=== PATIENT | female | born 1945 | race Caucasian/White ===

== ENCOUNTER 2017-02-22 22:02 | Inpatient (IN) | payer MEDICARE, MEDICAID ==
--- NOTE | 2017-02-22 22:32 | ER Document Report ---
ED General - General Stated Complaint: UNRESPONSIVE Time seen by provider: 22:32 Mode of Arrival: Medic Information source: Outside Facility Records TRAVEL OUTSIDE OF THE [place] IN LAST 30 DAYS: No - HPI Patient complains to provider of: unresponsive Onset: This evening Onset/Duration: Sudden Notes: Patient is a 71-year-old female who was sent from local longterm for period of unresponsiveness, patient is normally interactive and conversational with staff members, however today they noticed that she is basically staring off into space and nonverbal, nonreactive to there attempts to interact with her - Related Data Allergies/Adverse Reactions: codeine [Codeine] Allergy (Unknown, Verified 09/16/14 08:06) Unknown reaction meperidine HCl [From Demerol] Allergy (Unknown, Verified 09/16/14 08:06) Unknown reaction metronidazole [From Flagyl] Allergy (Unknown, Verified 09/16/14 08:06) Blisters Penicillins Allergy (Unknown, Verified 09/16/14 08:06) Blisters propofol [From Diprivan] Allergy (Unknown, Verified 09/16/14 08:06) Unknown reaction potassium [From Potassimin] Allergy (Verified 09/16/14 08:06) Blisters Past Medical History - General Information source: Patient - Social History Smoking Status: Unknown if Ever Smoked Family History: Reviewed & Not Pertinent - Past Medical History Cardiac Medical History: Reports: Hx Hypercholesterolemia, Hx Hypertension - portal, Hx Heart Murmur Pulmonary Medical History: Reports: Hx Asthma, Hx COPD, Hx Pneumonia Denies: Hx Tuberculosis Neurological Medical History: Reports: Hx Cerebrovascular Accident, Hx Migraine. Denies: Hx Seizures Endocrine Medical History: Reports: Hx Hypothyroidism GI Medical History: Reports: Hx Gastroesophageal Reflux Disease Musculoskeltal Medical History: Reports Hx Arthritis Psychiatric Medical History: Denies: Hx Depression Past Surgical History: Reports: Hx Cholecystectomy, Hx Hysterectomy, Hx Neurologic Surgery - back, Hx Orthopedic Surgery - back, knee, Hx Tonsillectomy - Immunizations Hx Diphtheria, Pertussis, Tetanus Vaccination: Yes Hx Pneumococcal Vaccination: 10/28/10 Review of Systems - Review of Systems -: Yes ROS unobtainable due to patient's medical condition Neurological/Psychological: See HPI Physical Exam - Vital signs Vitals: BP Pulse Ox 161/53 H 94 02/22/17 22:11 02/22/17 22:11 Interpretation: Hypertensive, Bradycardic - General General appearance: Unresponsive - HEENT Head: Normocephalic, Atraumatic Eyes: Normal Conjunctiva: Normal Eyelashes: Normal Pupils: PERRL Mucous membranes: Dry - Respiratory Respiratory status: No respiratory distress Chest status: Nontender Breath sounds: Decreased air movement, Nonproductive cough, Rales, Rhonchi Chest palpation: Normal - Cardiovascular Rhythm: Regular - Abdominal Inspection: Obese Distension: No distension Bowel sounds: Normal Tenderness: Nontender Organomegaly: No organomegaly - Back Back: Normal - Extremities General upper extremity: Normal inspection General lower extremity: Normal inspection - Neurological [place] Coma Scale Eye Opening: Spontaneous Mini Coma Scale Verbal: None Mini Coma Scale Motor: Withdraws to Pain Mini Coma Scale Total: 9 - Skin Skin Temperature: Warm Skin Moisture: Dry Skin Color: Pale Course - Re-evaluation Re-evalutation: 02/23/17 05:26 Patient arrived unresponsive but maintaining airway, with relatively stable vital signs, throughout the course of her stay in the emergency room she became much more awake, alert and quite belligerent, cursing at staff times, evaluation reveals patient have leukocytosis with possible pneumonia in the right lower lobe and a large pleural effusion on the left, patient had short periods of hypoxia at times when sleeping, therefore was discussed with the hospitalist who agrees to admit for further evaluation and treatment - Vital Signs Vital signs: Temp Pulse Resp BP Pulse Ox 17 126/84 H 96 02/23/17 04:00 02/23/17 03:06 02/23/17 04:00 - Laboratory Result Diagrams: 02/22/17 23:40 02/22/17 23:40 Laboratory results interpreted by me: 02/22/17 02/22/17 02/22/17 22:14 23:30 23:40 WBC 15.1 H RDW 15.4 H Lymphocytes % 11.2 L Absolute Neutrophils 11.3 H Absolute Monocytes 1.8 H Carbon Dioxide Glucose POC Glucose 145 H Total Bilirubin Direct Bilirubin AST Albumin Urine Urobilinogen 4.0 H Urine Ascorbic Acid 40 H 02/22/17 23:40 WBC RDW Lymphocytes % Absolute Neutrophils Absolute Monocytes Carbon Dioxide 34 H Glucose 151 H POC Glucose Total Bilirubin 2.7 H Direct Bilirubin 0.7 H AST 60 H Albumin 2.7 L Urine Urobilinogen Urine Ascorbic Acid - Diagnostic Test Radiology reviewed: Image reviewed, Reports reviewed - EKG Interpretation by Me EKG shows normal: Sinus rhythm Rate: Bradycardia When compared to previous EKG there are: No significant change Critical Care Note - Critical Care Note Total time excluding time spent on procedures (mins): 30 Comments: Patient arrived unresponsive, had intermittent periods of hypoxia, and a large pleural effusion on the left, requiring admission to hospitalist service for further evaluation and treatment Discharge - Discharge Clinical Impression: Pleural effusion, Acute encephalopathy Pneumonia Qualifiers: Pneumonia type: due to unspecified organism Laterality: right Lung location: lower lobe of lung Qualified Code(s): J18.1 - Lobar pneumonia, unspecified organism Disposition: ADMITTED INPATIENT Admitting Provider: Hospitalist Unit Admitted: Telemetry
[2017-02-22 23:55] LABS: APPEARANCE,URINE SLIGHTLY-CLOUDY; BILIRUBIN,URINE NEGATIVE (NEGATIVE); GLUCOSE, URINE NEGATIVE (NEGATIVE); KETONES,URINE NEGATIVE (NEGATIVE); LEUKOCYTE ESTERASE,URINE NEGATIVE (NEGATIVE); NITRITE,URINE NEGATIVE (NEGATIVE); PROTEIN,URINE NEGATIVE (NEGATIVE); URINE SPECIFIC GRAVITY 1.025
[2017-02-22 23:57] LABS: ABSOLUTE BASOPHILS # (AUTO) 0.1 10^3/uL (0.0-0.2); ABSOLUTE EOSINOPHILS # (AUTO) 0.3 10^3/uL (0.0-0.6); ABSOLUTE LYMPHOCYTES (AUTO) 1.7 10^3/uL (0.5-4.7); ABSOLUTE MONOCYTES (AUTO) 1.8 10^3/uL (0.1-1.4); ABSOLUTE NEUT (AUTO) 11.3 10^3/uL (1.7-8.2); BASOPHILS % (AUTO) 0.6 % (0-2); EOSINOPHILS % (AUTO) 1.8 % (0-6); HEMATOCRIT 40.8 % (36.0-47.0); HEMOGLOBIN 13.9 g/dL (12.0-15.5); HGB HCT DIFFERENCE 0.9; LYMPHOCYTES % (AUTO) 11.2 % (13-45); MEAN CORPUSCULAR HEMOGLOBIN 33.2 pg (27.0-33.4); MEAN CORPUSCULAR VOLUME 97 fl (80-97); MONOCYTES % (AUTO) 11.8 % (3-13); RED BLOOD COUNT 4.19 10^6/uL (3.72-5.28); RED CELL DISTRIBUTION WIDTH 15.4 % (11.5-14.0); SEGMENTED NEUTROPHILS % (AUTO) 74.6 % (42-78); WHITE BLOOD COUNT 15.1 10^3/uL (4.0-10.5)
[2017-02-23 00:14] LABS: ALANINE AMINOTRANSFERASE 18 U/L (9-52); ALBUMIN 2.7 g/dL (3.5-5.0); ALKALINE PHOSPHATASE 121 U/L (38-126); ANION GAP 8 (5-19); ASPARTATE AMINO TRANSFERASE 60 U/L (14-36); BILIRUBIN,DIRECT 0.7 mg/dL (0.0-0.4); BILIRUBIN,TOTAL 2.7 mg/dL (0.2-1.3); BLOOD UREA NITROGEN 20 mg/dL (7-20); CALCIUM 8.8 mg/dL (8.4-10.2); CARBON DIOXIDE 34 mmol/L (22-30); CHLORIDE 100 mmol/L (98-107); CREATININE RESULT 0.81 mg/dL (0.52-1.25); GLUCOSE 151 mg/dL (75-110); POTASSIUM 4.2 mmol/L (3.6-5.0); SODIUM 142.2 mmol/L (137-145); TOTAL PROTEIN 7.1 g/dL (6.3-8.2)
[2017-02-23] MEDS ORDERED: LEVOFLOXACIN 750 MG/D5W RTU 150 ML IV ONE (01:54)
[2017-02-23] MEDS ORDERED: OXYCODONE HCL IR 5 MG TABLET PO PRN (02:22)
[2017-02-23] MEDS ORDERED: IPRATROPIUM/ALBUTEROL 0.5-2.5 MG/3 ML AMPUL NEB PRN (02:22)
[2017-02-23] MEDS ORDERED: HYDROCORTISONE 1% CREAM 28.35 GM TP PRN (02:22)
[2017-02-23] MEDS ORDERED: GUAIFENESIN SYRP 200 MG/10 ML UDC PO PRN (02:22)
[2017-02-23] MEDS ORDERED: NORMAL SALINE 1000 ML 1,000 ML IV ONE (02:27)
[2017-02-23] MEDS ORDERED: AZTREONAM 1 GM in DEXTROSE 5%-WATER 50 ML IV ONE (03:00)
[2017-02-23] MEDS ORDERED: AZTREONAM INJ 1 GM VIAL IV SCH (03:00)
[2017-02-23] MEDS ORDERED: TRAZODONE HCL 50 MG TABLET PO ONE (03:00)
[2017-02-23] MEDS ORDERED: DEXTROSE 40% GEL 15 GM TUBE PO PRN ×2 (03:45)
[2017-02-23] MEDS ORDERED: DEXTROSE 50%-WATER 25 GM/50 ML DISP.SYRIN IV PRN ×2 (03:45)
[2017-02-23] MEDS ORDERED: GLUCAGON,HUMAN RECOMB 1 MG INJ IM PRN (03:45)
--- NOTE | 2017-02-23 04:10 | PDOC H&P ---
History of Present Illness Admission Date/PCP: 02/23/17 02:23 Patient complains of: Altered mental status History of Present Illness: ARETHA COLLADO is a 71 year old female with an extensive past medical history of alcohol related hepatic cirrhosis, portal hypertension, hypothyroidism, depression and anxiety, gastritis, chronic pain, chronic constipation, history of CVA who is a bedbound long-term residential resident. She's found by residential staff to be unresponsive to voice brought into the emergency room where she is awake and alert and delirious refusing treatment. Without focal complaints her workup reveals +2 edema, a large left-sided pleural effusion with atelectasis versus pneumonia, leukocytosis, and hyponatremia. She started on empiric resistance to this treatment results in her right forearm IV infiltrates resulting in Levaquin to the subcutaneous tissue. Patient is referred to the hospitalist for admission. She is lying flat in no acute distress but delirious, abusive toward staff and refusing treatment her baseline is unclear and is oriented 1. I am searching for power of attorney at law for patient's wishes. Past Medical History Cardiac Medical History: Reports: Hyperlipidema, Hypertension - portal, Heart Murmur Pulmonary Medical History: Reports: Asthma, Chronic Obstructive Pulmonary Disease (COPD), Pneumonia Denies: Tuberculosis Neurological Medical History: Reports: Migraine Denies: Seizures Endocrine Medical History: Reports: Hypothyroidism GI Medical History: Reports: Gastroesophageal Reflux Disease Musculoskeltal Medical History: Reports: Arthritis Psychiatric Medical History: Denies: Depression Past Surgical History Past Surgical History: Reports: Cholecystectomy, Hysterectomy, Orthopedic Surgery - back, knee, Tonsillectomy Social History Information Source: ON LICENSE OF [facility] Records Lives with: Longterm Smoking Status: Unknown if Ever Smoked Frequency of Alcohol Use: None Hx Recreational Drug Use: No Drugs: None Hx Prescription Drug Abuse: No - Advance Directive Resuscitation Status: Do Not Resuscitate Family History Family History: None, Other - Unobtainable Parental Family History Reviewed: Yes Children Family History Reviewed: Yes Sibling(s) Family History Reviewed.: Yes - Unobtainable unobtainable Medication/Allergy Home Medications: Aspirin 325 mg PO DAILY 12/24/15 Gabapentin [Neurontin 300 mg Capsule] 300 mg PO TID 12/24/15 Hydrocortisone [Preparation H] 1 applic TP PRN PRN 12/24/15 Lactulose [Enulose 10 gm/15 mL Oral Solution] 15 ml PO QHS 12/24/15 Metaxalone [Skelaxin 800 mg Tablet] 800 mg PO PRN PRN 12/24/15 Omeprazole [Prilosec] 20 mg PO DAILY 12/24/15 Ondansetron HCl [Zofran 8 mg Tablet] 8 mg PO Q8HP PRN 12/24/15 Polyethylene Glycol 3350 [Miralax Powder 17 gm/Packet] 1 packet PO DAILY Pramipexole Di-HCl [Mirapex] 1.5 mg PO BID 12/24/15 Guaifenesin [Robitussin Syrup 200 mg/10 ml Ud Cup] 200 mg PO Q4HP PRN #1 udc Ipratropium/Albuterol Sulfate [Duoneb 3 ml Ampul] 3 ml NEB RTQ4HP PRN #0 vial.neb 12/26/15 Trazodone HCl [Desyrel 50 mg Tablet] 50 mg PO QHS 01/28/16 Alprazolam [Xanax 0.5 mg Tablet] 0.5 mg PO Q8HP PRN #10 tablet 02/03/16 Docusate Sodium [Colace 100 mg Capsule] 100 mg PO DAILY capsule 02/03/16 Enoxaparin Sodium [Lovenox Inj 40 mg/0.4 ml Disp.syrin] 40 mg SUBCUT QAM disp.syrin 02/03/16 Oxycodone HCl 10 mg PO Q4HP PRN #30 tablet 02/03/16 Oxycodone HCl [Oxycontin Sr 10 mg Tablet] 20 mg PO Q12 #20 tab.sr.12h 02/03/16 Propranolol HCl [Inderal 10 mg Tablet] 10 mg PO Q8 tablet 02/03/16 Sennosides/Docusate 8.6-50 mg [Senna Plus Tablet] 1 each PO DAILY tablet Sulfamethoxazole/Trimethoprim [Bactrim Ds Tablet] 1 each PO BID #20 tablet 02/17 Allergies/Adverse Reactions: codeine [Codeine] Allergy (Unknown, Verified 09/16/14 08:06) Unknown reaction meperidine HCl [From Demerol] Allergy (Unknown, Verified 09/16/14 08:06) Unknown reaction metronidazole [From Flagyl] Allergy (Unknown, Verified 09/16/14 08:06) Blisters Penicillins Allergy (Unknown, Verified 09/16/14 08:06) Blisters propofol [From Diprivan] Allergy (Unknown, Verified 09/16/14 08:06) Unknown reaction potassium [From Potassimin] Allergy (Verified 09/16/14 08:06) Blisters Review of Systems ROS unobtainable: Due to mental status Physical Exam Vital Signs: Temp Pulse Resp BP Pulse Ox 19 126/84 H 96 02/23/17 03:06 02/23/17 03:06 02/23/17 03:06 General appearance: PRESENT: no acute distress, disheveled, morbidly obese. ABSENT: cooperative Head exam: PRESENT: atraumatic, normocephalic Eye exam: PRESENT: conjunctiva pink, EOMI, PERRLA. ABSENT: scleral icterus Ear exam: PRESENT: normal external ear exam Mouth exam: PRESENT: moist, tongue midline Neck exam: ABSENT: carotid bruit, JVD, lymphadenopathy, thyromegaly Respiratory exam: PRESENT: crackles - Right side, decreased breath sounds - Left side. ABSENT: rales, rhonchi, symmetrical, wheezes Cardiovascular exam: PRESENT: RRR. ABSENT: diastolic murmur, rubs, systolic murmur Pulses: PRESENT: normal dorsalis pedis pul Vascular exam: PRESENT: normal capillary refill GI/Abdominal exam: PRESENT: ascites, hypoactive bowel sounds, soft. ABSENT: rebound, tenderness Rectal exam: PRESENT: deferred Extremities exam: PRESENT: pedal edema, +2 edema. ABSENT: joint swelling, tenderness Neurological exam: PRESENT: alert, altered, awake, oriented to person, CN II- XII grossly intact. ABSENT: oriented to place, oriented to time Psychiatric exam: PRESENT: agitated - With stimulus Skin exam: PRESENT: dry, intact, warm. ABSENT: cyanosis, rash Results Impressions: Chest X-Ray 02/22/17 22:11 IMPRESSION: INTERVAL DEVELOPMENT OF LARGE LEFT PLEURAL EFFUSION. OTHERWISE STABLE APPEARANCE OF THE CHEST. Chest CT 02/23/17 00:33 IMPRESSION: 1. LARGE LEFT PLEURAL EFFUSION WITH COMPRESSIVE ATELECTASIS OF THE LEFT LUNG. MINIMAL SUBPULMONIC RIGHT PLEURAL EFFUSION. PATCHY DENSITY IN THE RIGHT LUNG BASE MAY BE DUE TO ATELECTASIS VERSUS DEVELOPING PNEUMONIA. 2. HETEROGENOUS APPEARANCE OF THE THYROID WITH LOWER LEFT LOBE NODULE WITH NUMEROUS CALCIFICATIONS. RECOMMEND FOLLOW-UP WITH ULTRASOUND OF THE THYROID. 3. SOMEWHAT NODULAR APPEARANCE OF THE LIVER WELL SPLENOMEGALY. PROBABLE CIRRHOSIS OR OTHER CHRONIC LIVER DISEASE. Assessment & Plan - Diagnosis (1) Malnutrition Is this a current diagnosis for this admission?: YesPlan: Acute problem Likely secondary to hepatic insufficiency I'll obtain an albumin level and prealbumin level for evaluation (2) Hepatic cirrhosis Is this a current diagnosis for this admission?: YesPlan: Chronic an unclear control obtaining ammonia level, and INR. I am unclear if auto anticoagulation is present and if so increasing risk of thoracentesis. Follow-up labs consider vitamin K or FFP (3) Acute encephalopathy Is this a current diagnosis for this admission?: YesPlan: Likely multifactorial secondary to underlying dementia in addition to acute illness. Continue supportive care obtaining ammonia level consideration of lactulose if elevated and empiric anabiotic for treatment for underlying pneumonia. And follow-up labs (4) Pleural effusion Is this a current diagnosis for this admission?: YesPlan: New an acute problem of unclear cause. Pneumonia versus malignancy versus transudate from hepatic insufficiency. Will evaluate for coagulopathy. And discussed with daughter power of attorney at law for patient's wishes prior to consideration of thoracentesis. Otherwise supportive care supplemental oxygen consideration of BiPAP. (5) Pneumonia Qualifiers: Pneumonia type: due to unspecified organism Laterality: right Lung location: lower lobe of lung Qualified Code(s): J18.1 - Lobar pneumonia, unspecified organism Plan: New acute Compressive Atelectasis versus pneumonia she receive empiric antibiotics blood cultures and follow-up labs. Patient is currently delirious refusing intervention including incentive spirometry severely complicating prognosis. - Time Time Spent: 50 to 70 Minutes - Inpatient Certification Medical Necessity: Need Close Monitoring Due to Risk of Patient Decompensation
[2017-02-23] MEDS: PROPRANOLOL HCL 10 MG TABLET PO SCH ×3 (06:03→21:31)
[2017-02-23 07:21] LABS: PROTHROMBIN TIME 18.9 SEC (11.4-15.4)
[2017-02-23 07:22] LABS: PARTIAL THROMBOPLASTIN TIME 38.5 SEC (23.5-35.8)
[2017-02-23] MEDS: IPRATROPIUM/ALBUTEROL 0.5-2.5 MG/3 ML AMPUL NEB SCH ×3 (07:41→23:39)
--- NOTE | 2017-02-23 09:48 | EKG REPORT ---
SEVERITY:- ABNORMAL ECG - SINUS BRADYCARDIA : Confirmed by: Natanael Lake 23-Feb-2017 09:48:06
[2017-02-23] MEDS ORDERED: (PENDING PHARMACY ID) (Omeprazole [Prilosec] 20 MG) PO SCH (10:00)
[2017-02-23] MEDS ORDERED: AZTREONAM 1 GM in DEXTROSE 5%-WATER 50 ML IV SCH (10:00)
--- NOTE | 2017-02-23 10:18 | PDOC PROGRESS REPORT ---
Subjective Progress Note for:: 02/23/17 Subjective:: Patient began crying when I talk to her saying that she wanted to go home. She denied any pain or shortness of breath. Physical Exam Vital Signs: Temp Pulse Resp BP Pulse Ox 97.6 F 61 19 125/54 L 98 02/23/17 09:24 02/23/17 09:24 02/23/17 09:24 02/23/17 09:24 02/23/17 09:24 Intake & Output 02/22/17 02/23/17 02/24/17 06:59 06:59 06:59 Intake Total 207 Balance 207 Weight 85 kg General appearance: PRESENT: no acute distress Eye exam: PRESENT: conjunctiva pink. ABSENT: scleral icterus Mouth exam: PRESENT: moist, tongue midline Neck exam: ABSENT: JVD Respiratory exam: PRESENT: rhonchi - Coarse rhonchi bilaterally.. ABSENT: rales , wheezes Cardiovascular exam: PRESENT: RRR. ABSENT: diastolic murmur, rubs, systolic murmur GI/Abdominal exam: PRESENT: normal bowel sounds, soft. ABSENT: distended, guarding, mass, organolmegaly, rebound, tenderness Extremities exam: ABSENT: calf tenderness, clubbing, pedal edema Neurological exam: PRESENT: awake, oriented to person, oriented to place. ABSENT: oriented to time, oriented to situation Psychiatric exam: PRESENT: anxious Skin exam: PRESENT: dry, intact, warm. ABSENT: cyanosis, rash Results Laboratory Results: 02/23/17 02/23/17 02/23/17 06:59 06:59 06:59 Ammonia 16.1 Prealbumin < 3.0 L TSH 1.98 Impressions: Chest X-Ray 02/22/17 22:11 IMPRESSION: INTERVAL DEVELOPMENT OF LARGE LEFT PLEURAL EFFUSION. OTHERWISE STABLE APPEARANCE OF THE CHEST. Chest CT 02/23/17 00:33 IMPRESSION: 1. LARGE LEFT PLEURAL EFFUSION WITH COMPRESSIVE ATELECTASIS OF THE LEFT LUNG. MINIMAL SUBPULMONIC RIGHT PLEURAL EFFUSION. PATCHY DENSITY IN THE RIGHT LUNG BASE MAY BE DUE TO ATELECTASIS VERSUS DEVELOPING PNEUMONIA. 2. HETEROGENOUS APPEARANCE OF THE THYROID WITH LOWER LEFT LOBE NODULE WITH NUMEROUS CALCIFICATIONS. RECOMMEND FOLLOW-UP WITH ULTRASOUND OF THE THYROID. 3. SOMEWHAT NODULAR APPEARANCE OF THE LIVER WELL SPLENOMEGALY. PROBABLE CIRRHOSIS OR OTHER CHRONIC LIVER DISEASE. Assessment & Plan - Diagnosis (1) Acute encephalopathy Is this a current diagnosis for this admission?: YesPlan: This is secondary to her infection and underlying liver disease. We'll continue with antibiotics and lactulose. (2) Pneumonia Qualifiers: Pneumonia type: due to unspecified organism Laterality: right Lung location: lower lobe of lung Qualified Code(s): J18.1 - Lobar pneumonia, unspecified organism Is this a current diagnosis for this admission?: YesPlan: Continue with aztreonam and Levaquin. She has large pleural effusion on the left. If she does not improve we may need to do a thoracentesis. (3) Hepatic cirrhosis Is this a current diagnosis for this admission?: YesPlan: We'll continue with the lactulose. - Time Time Spent with patient: 25-34 minutes - Inpatient Certification Medical Necessity: Need for IV Antibiotics
[2017-02-23] MEDS: ASPIRIN 325 MG TABLET PO SCH (10:25)
[2017-02-23] MEDS: SENNOSIDES/DOCUSATE 8.6-50 MG 1 EACH TABLET PO SCH (10:26)
[2017-02-23] MEDS: GABAPENTIN 300 MG CAPSULE PO SCH ×3 (10:26→17:47)
[2017-02-23] MEDS: POLYETHYLENE GLYCOL 3350 POWDER 17 GM/1 PACKET PO SCH (10:27)
[2017-02-23] MEDS: DOCUSATE SODIUM 100 MG CAPSULE PO SCH (10:27)
[2017-02-23] MEDS: LANSOPRAZOLE 15 MG TAB.RAP.DR PO SCH (10:27)
[2017-02-23] MEDS: OXYCODONE HCL SR 10 MG TABLET PO SCH ×2 (10:27→21:31)
[2017-02-23] MEDS: ENOXAPARIN SODIUM INJ 40 MG/0.4 ML DISP.SYRIN SUBCUT SCH (10:28)
[2017-02-23] MEDS: AZTREONAM 1 GM in DEXTROSE 5%-WATER 50 ML IV SCH ×2 (13:17→21:31)
[2017-02-23] MEDS: INSULIN LISPRO 100 UNIT/ML 3 ML VIAL SUBCUT PRN ×2 (13:18→22:20)
[2017-02-23] MEDS: LACTULOSE SYRUP 20 GM/30 ML UDCUP PO SCH (21:31)
[2017-02-23] MEDS: LEVOFLOXACIN 750 MG/D5W RTU 750 MG/150 ML RTUPB IV SCH (21:31)
[2017-02-23] MEDS: TRAZODONE HCL 50 MG TABLET PO SCH (21:31)
[2017-02-24 04:47] LABS: ABSOLUTE BASOPHILS # (AUTO) 0.1 10^3/uL (0.0-0.2); ABSOLUTE EOSINOPHILS # (AUTO) 0.3 10^3/uL (0.0-0.6); ABSOLUTE LYMPHOCYTES (AUTO) 1.5 10^3/uL (0.5-4.7); ABSOLUTE MONOCYTES (AUTO) 1.6 10^3/uL (0.1-1.4); ABSOLUTE NEUT (AUTO) 9.8 10^3/uL (1.7-8.2); BASOPHILS % (AUTO) 0.5 % (0-2); HEMATOCRIT 38.1 % (36.0-47.0); HEMOGLOBIN 12.7 g/dL (12.0-15.5); LYMPHOCYTES % (AUTO) 11.1 % (13-45); MEAN CORPUSCULAR HGB CONC 33.4 g/dL (32.0-36.0); MEAN CORPUSCULAR VOLUME 99 fl (80-97); MONOCYTES % (AUTO) 12.3 % (3-13); RED BLOOD COUNT 3.86 10^6/uL (3.72-5.28); RED CELL DISTRIBUTION WIDTH 15.3 % (11.5-14.0); SEGMENTED NEUTROPHILS % (AUTO) 74.1 % (42-78); WHITE BLOOD COUNT 13.2 10^3/uL (4.0-10.5)
[2017-02-24 05:08] LABS: ANION GAP 8 (5-19); BLOOD UREA NITROGEN 24 mg/dL (7-20); CALCIUM 8.5 mg/dL (8.4-10.2); CARBON DIOXIDE 34 mmol/L (22-30); CHLORIDE 101 mmol/L (98-107); GLUCOSE 127 mg/dL (75-110); POTASSIUM 4.5 mmol/L (3.6-5.0); SODIUM 142.7 mmol/L (137-145)
[2017-02-24] MEDS: AZTREONAM 1 GM in DEXTROSE 5%-WATER 50 ML IV SCH ×3 (05:28→21:22)
[2017-02-24] MEDS: PROPRANOLOL HCL 10 MG TABLET PO SCH ×3 (05:28→21:22)
[2017-02-24] MEDS: IPRATROPIUM/ALBUTEROL 0.5-2.5 MG/3 ML AMPUL NEB SCH ×3 (07:50→23:41)
[2017-02-24] MEDS: ENOXAPARIN SODIUM INJ 40 MG/0.4 ML DISP.SYRIN SUBCUT SCH (11:20)
[2017-02-24] MEDS: GABAPENTIN 300 MG CAPSULE PO SCH ×3 (11:21→17:11)
[2017-02-24] MEDS: LANSOPRAZOLE 15 MG TAB.RAP.DR PO SCH (11:21)
[2017-02-24] MEDS: ASPIRIN 325 MG TABLET PO SCH (11:21)
[2017-02-24] MEDS: DOCUSATE SODIUM 100 MG CAPSULE PO SCH (11:21)
[2017-02-24] MEDS: SENNOSIDES/DOCUSATE 8.6-50 MG 1 EACH TABLET PO SCH (11:21)
[2017-02-24] MEDS: POLYETHYLENE GLYCOL 3350 POWDER 17 GM/1 PACKET PO SCH (11:22)
[2017-02-24] MEDS: OXYCODONE HCL SR 10 MG TABLET PO SCH ×2 (11:22→21:22)
[2017-02-24] MEDS: INSULIN LISPRO 100 UNIT/ML 3 ML VIAL SUBCUT PRN ×3 (12:09→22:41)
--- NOTE | 2017-02-24 12:21 | PDOC PROGRESS REPORT ---
Subjective Progress Note for:: 02/24/17 Subjective:: Patient is confused. She denied any pain or shortness of breath. Physical Exam Vital Signs: Temp Pulse Resp BP Pulse Ox 98.3 F 76 18 149/58 H 95 02/24/17 09:43 02/24/17 09:43 02/24/17 09:43 02/24/17 09:43 02/24/17 09:43 Intake & Output 02/23/17 02/24/17 02/25/17 06:59 06:59 06:59 Intake Total 207 1497 Balance 207 1497 Weight 85 kg 86.6 kg General appearance: PRESENT: no acute distress Eye exam: PRESENT: conjunctiva pink. ABSENT: scleral icterus Mouth exam: PRESENT: moist, tongue midline Neck exam: ABSENT: JVD Respiratory exam: PRESENT: decreased breath sounds - Decrease in the left base. ABSENT: rales, rhonchi, wheezes Cardiovascular exam: PRESENT: RRR. ABSENT: diastolic murmur, rubs, systolic murmur GI/Abdominal exam: PRESENT: normal bowel sounds, soft. ABSENT: distended, guarding, mass, organolmegaly, rebound, tenderness Extremities exam: ABSENT: calf tenderness, clubbing, pedal edema Neurological exam: PRESENT: altered, oriented to person, CN II-XII grossly intact. ABSENT: oriented to place, oriented to time, oriented to situation, motor sensory deficit Psychiatric exam: PRESENT: agitated, anxious Skin exam: PRESENT: dry, intact, warm. ABSENT: cyanosis, rash Results Laboratory Results: 02/24/17 03:49 02/24/17 03:49 02/24/17 02/24/17 03:49 03:49 WBC 13.2 H RBC 3.86 Hgb 12.7 Hct 38.1 MCV 99 H MCH 33.0 MCHC 33.4 RDW 15.3 H Plt Count 255 Seg Neutrophils % 74.1 Lymphocytes % 11.1 L Monocytes % 12.3 Eosinophils % 2.0 Basophils % 0.5 Absolute Neutrophils 9.8 H Absolute Lymphocytes 1.5 Absolute Monocytes 1.6 H Absolute Eosinophils 0.3 Absolute Basophils 0.1 Sodium 142.7 Potassium 4.5 Chloride 101 Carbon Dioxide 34 H Anion Gap 8 BUN 24 H Creatinine 0.90 Est GFR ( Amer) > 60 Est GFR (Non-Af Amer) > 60 Glucose 127 H Calcium 8.5 Impressions: Chest X-Ray 02/22/17 22:11 IMPRESSION: INTERVAL DEVELOPMENT OF LARGE LEFT PLEURAL EFFUSION. OTHERWISE STABLE APPEARANCE OF THE CHEST. Chest CT 02/23/17 00:33 IMPRESSION: 1. LARGE LEFT PLEURAL EFFUSION WITH COMPRESSIVE ATELECTASIS OF THE LEFT LUNG. MINIMAL SUBPULMONIC RIGHT PLEURAL EFFUSION. PATCHY DENSITY IN THE RIGHT LUNG BASE MAY BE DUE TO ATELECTASIS VERSUS DEVELOPING PNEUMONIA. 2. HETEROGENOUS APPEARANCE OF THE THYROID WITH LOWER LEFT LOBE NODULE WITH NUMEROUS CALCIFICATIONS. RECOMMEND FOLLOW-UP WITH ULTRASOUND OF THE THYROID. 3. SOMEWHAT NODULAR APPEARANCE OF THE LIVER WELL SPLENOMEGALY. PROBABLE CIRRHOSIS OR OTHER CHRONIC LIVER DISEASE. Assessment & Plan - Diagnosis (1) Acute encephalopathy Is this a current diagnosis for this admission?: YesPlan: This is secondary to her infection and underlying liver disease. We'll continue with antibiotics and lactulose. (2) Pneumonia Qualifiers: Pneumonia type: due to unspecified organism Laterality: right Lung location: lower lobe of lung Qualified Code(s): J18.1 - Lobar pneumonia, unspecified organism Is this a current diagnosis for this admission?: YesPlan: Continue with aztreonam and Levaquin. She has large pleural effusion on the left. Will place an order for thoracentesis to be done tomorrow. (3) Hepatic cirrhosis Is this a current diagnosis for this admission?: YesPlan: We'll continue with the lactulose. - Time Time Spent with patient: 25-34 minutes - Inpatient Certification Medical Necessity: Need Close Monitoring Due to Risk of Patient Decompensation, Need for IV Antibiotics
[2017-02-24 14:17] LABS: PROTHROMBIN TIME 18.2 SEC (11.4-15.4)
[2017-02-24] MEDS ORDERED: HALOPERIDOL LACTATE INJ 5 MG/1 ML VIAL IV PRN (17:54)
[2017-02-24] MEDS: LEVOFLOXACIN 750 MG/D5W RTU 750 MG/150 ML RTUPB IV SCH (21:22)
[2017-02-24] MEDS: TRAZODONE HCL 50 MG TABLET PO SCH (21:22)
[2017-02-24] MEDS: LACTULOSE SYRUP 20 GM/30 ML UDCUP PO SCH (21:22)
[2017-02-25 05:01] LABS: ABSOLUTE BASOPHILS # (AUTO) 0.1 10^3/uL (0.0-0.2); ABSOLUTE EOSINOPHILS # (AUTO) 0.2 10^3/uL (0.0-0.6); ABSOLUTE LYMPHOCYTES (AUTO) 1.4 10^3/uL (0.5-4.7); ABSOLUTE MONOCYTES (AUTO) 1.6 10^3/uL (0.1-1.4); ABSOLUTE NEUT (AUTO) 9.9 10^3/uL (1.7-8.2); BASOPHILS % (AUTO) 0.4 % (0-2); EOSINOPHILS % (AUTO) 1.7 % (0-6); HEMATOCRIT 38.4 % (36.0-47.0); HEMOGLOBIN 12.8 g/dL (12.0-15.5); LYMPHOCYTES % (AUTO) 10.7 % (13-45); MEAN CORPUSCULAR HEMOGLOBIN 32.7 pg (27.0-33.4); MEAN CORPUSCULAR HGB CONC 33.4 g/dL (32.0-36.0); MEAN CORPUSCULAR VOLUME 98 fl (80-97); MONOCYTES % (AUTO) 11.9 % (3-13); RED BLOOD COUNT 3.92 10^6/uL (3.72-5.28); RED CELL DISTRIBUTION WIDTH 15.4 % (11.5-14.0); SEGMENTED NEUTROPHILS % (AUTO) 75.3 % (42-78); WHITE BLOOD COUNT 13.2 10^3/uL (4.0-10.5)
[2017-02-25] MEDS: PROPRANOLOL HCL 10 MG TABLET PO SCH ×3 (05:21→23:56)
[2017-02-25 05:27] LABS: ANION GAP 7 (5-19); BLOOD UREA NITROGEN 23 mg/dL (7-20); CALCIUM 8.5 mg/dL (8.4-10.2); CARBON DIOXIDE 31 mmol/L (22-30); CHLORIDE 101 mmol/L (98-107); CREATININE RESULT 0.96 mg/dL (0.52-1.25); GLUCOSE 119 mg/dL (75-110); POTASSIUM 4.9 mmol/L (3.6-5.0); SODIUM 139.4 mmol/L (137-145)
[2017-02-25] MEDS: AZTREONAM 1 GM in DEXTROSE 5%-WATER 50 ML IV SCH ×2 (05:29→17:01)
[2017-02-25] MEDS: IPRATROPIUM/ALBUTEROL 0.5-2.5 MG/3 ML AMPUL NEB SCH ×2 (08:00→16:28)
--- NOTE | 2017-02-25 10:41 | PDOC PROGRESS REPORT ---
Subjective Progress Note for:: 02/25/17 Subjective:: Patient is confused. Patient is less agitated today. She denied any pain or shortness of breath. Physical Exam Vital Signs: Temp Pulse Resp BP Pulse Ox 98.1 F 64 18 152/49 H 96 02/25/17 08:00 02/25/17 08:00 02/25/17 08:00 02/25/17 08:00 02/25/17 08:00 Intake & Output 02/24/17 02/25/17 02/26/17 06:59 06:59 06:59 Intake Total 1497 1271 Balance 1497 1271 Weight 86.6 kg 85.2 kg General appearance: PRESENT: no acute distress Eye exam: PRESENT: conjunctiva pink. ABSENT: scleral icterus Mouth exam: PRESENT: moist, tongue midline Neck exam: ABSENT: JVD Respiratory exam: PRESENT: decreased breath sounds - Decreased breath sounds in the left base., rhonchi - Course left-sided rhonchi.. ABSENT: rales, wheezes Cardiovascular exam: PRESENT: RRR. ABSENT: diastolic murmur, rubs, systolic murmur GI/Abdominal exam: PRESENT: normal bowel sounds, soft. ABSENT: distended, guarding, mass, organolmegaly, rebound, tenderness Extremities exam: ABSENT: calf tenderness, clubbing, pedal edema Neurological exam: PRESENT: altered, oriented to person. ABSENT: oriented to place, oriented to time, oriented to situation, motor sensory deficit Psychiatric exam: PRESENT: flat affect Skin exam: PRESENT: dry, intact, warm. ABSENT: cyanosis, rash Results Laboratory Results: 02/25/17 03:49 02/25/17 03:49 02/25/17 02/25/17 03:49 03:49 WBC 13.2 H RBC 3.92 Hgb 12.8 Hct 38.4 MCV 98 H MCH 32.7 MCHC 33.4 RDW 15.4 H Plt Count 253 Seg Neutrophils % 75.3 Lymphocytes % 10.7 L Monocytes % 11.9 Eosinophils % 1.7 Basophils % 0.4 Absolute Neutrophils 9.9 H Absolute Lymphocytes 1.4 Absolute Monocytes 1.6 H Absolute Eosinophils 0.2 Absolute Basophils 0.1 Sodium 139.4 Potassium 4.9 Chloride 101 Carbon Dioxide 31 H Anion Gap 7 BUN 23 H Creatinine 0.96 Est GFR ( Amer) > 60 Est GFR (Non-Af Amer) 57 L Glucose 119 H Calcium 8.5 Impressions: Chest X-Ray 02/22/17 22:11 IMPRESSION: INTERVAL DEVELOPMENT OF LARGE LEFT PLEURAL EFFUSION. OTHERWISE STABLE APPEARANCE OF THE CHEST. Chest CT 02/23/17 00:33 IMPRESSION: 1. LARGE LEFT PLEURAL EFFUSION WITH COMPRESSIVE ATELECTASIS OF THE LEFT LUNG. MINIMAL SUBPULMONIC RIGHT PLEURAL EFFUSION. PATCHY DENSITY IN THE RIGHT LUNG BASE MAY BE DUE TO ATELECTASIS VERSUS DEVELOPING PNEUMONIA. 2. HETEROGENOUS APPEARANCE OF THE THYROID WITH LOWER LEFT LOBE NODULE WITH NUMEROUS CALCIFICATIONS. RECOMMEND FOLLOW-UP WITH ULTRASOUND OF THE THYROID. 3. SOMEWHAT NODULAR APPEARANCE OF THE LIVER WELL SPLENOMEGALY. PROBABLE CIRRHOSIS OR OTHER CHRONIC LIVER DISEASE. Assessment & Plan - Diagnosis (1) Acute encephalopathy Is this a current diagnosis for this admission?: YesPlan: This is secondary to her infection and underlying liver disease. We'll continue with antibiotics and lactulose. Patient is less agitated today after receiving Haldol yesterday. (2) Pneumonia Qualifiers: Pneumonia type: due to unspecified organism Laterality: right Lung location: lower lobe of lung Qualified Code(s): J18.1 - Lobar pneumonia, unspecified organism Is this a current diagnosis for this admission?: YesPlan: Continue with aztreonam and Levaquin. She has large pleural effusion on the left. She is to have a thoracentesis today. (3) Hepatic cirrhosis Is this a current diagnosis for this admission?: YesPlan: We'll continue with the lactulose. - Time Time Spent with patient: 25-34 minutes - Inpatient Certification Medical Necessity: Need Close Monitoring Due to Risk of Patient Decompensation, Need for IV Antibiotics
[2017-02-25] MEDS: OXYCODONE HCL SR 10 MG TABLET PO SCH (12:06)
[2017-02-25] MEDS: DOCUSATE SODIUM 100 MG CAPSULE PO SCH (12:06)
[2017-02-25] MEDS: POLYETHYLENE GLYCOL 3350 POWDER 17 GM/1 PACKET PO SCH (12:06)
[2017-02-25] MEDS: SENNOSIDES/DOCUSATE 8.6-50 MG 1 EACH TABLET PO SCH (12:06)
[2017-02-25] MEDS: ASPIRIN 325 MG TABLET PO SCH (12:06)
[2017-02-25] MEDS: GABAPENTIN 300 MG CAPSULE PO SCH ×3 (12:06→18:51)
[2017-02-25] MEDS: LANSOPRAZOLE 15 MG TAB.RAP.DR PO SCH (12:06)
[2017-02-25] MEDS ORDERED: FENTANYL CITRATE INJ/PF 100 MCG/2 ML AMPUL ONE (14:20)
[2017-02-25] MEDS: ENOXAPARIN SODIUM INJ 40 MG/0.4 ML DISP.SYRIN SUBCUT SCH (17:02)
[2017-02-25 17:05] LABS: FLUID APPEARANCE OPAQUE; FLUID TYPE PLEURAL
[2017-02-25 17:06] LABS: FLUID RBC DILUENT USED SALINE; FLUID RBC DILUTION FACTOR 20; FLUID RBC SIDE 1 325; FLUID RBC SIDE 2 285
[2017-02-25 17:07] LABS: TOTAL RBC SQUARES COUNTED FLD 25
[2017-02-25] MEDS ORDERED: LEVOFLOXACIN 750 MG TABLET PO SCH (22:00)
[2017-02-25] MEDS: LACTULOSE SYRUP 20 GM/30 ML UDCUP PO SCH (23:58)
[2017-02-25] MEDS: TRAZODONE HCL 50 MG TABLET PO SCH (23:59)
[2017-02-26] MEDS: IPRATROPIUM/ALBUTEROL 0.5-2.5 MG/3 ML AMPUL NEB SCH ×3 (00:20→16:14)
[2017-02-26 00:44] LABS: ARTERIAL BLOOD BASE EXCESS 3.8 mmol/L; ARTERIAL BLOOD O2 SATURATION 91.4 % (94-98)
[2017-02-26] MEDS: OXYCODONE HCL SR 10 MG TABLET PO SCH ×3 (01:38→23:58)
[2017-02-26] MEDS ORDERED: AZTREONAM 1 GM in DEXTROSE 5%-WATER 50 ML IV SCH ×2 (03:00→10:00)
[2017-02-26] MEDS: NORMAL SALINE 1000 ML 1,000 ML IV PRN ×2 (03:50→17:30)
[2017-02-26 04:31] LABS: ABSOLUTE BASOPHILS # (AUTO) 0.1 10^3/uL (0.0-0.2); ABSOLUTE EOSINOPHILS # (AUTO) 0.1 10^3/uL (0.0-0.6); ABSOLUTE LYMPHOCYTES (AUTO) 1.2 10^3/uL (0.5-4.7); ABSOLUTE MONOCYTES (AUTO) 1.1 10^3/uL (0.1-1.4); ABSOLUTE NEUT (AUTO) 10.8 10^3/uL (1.7-8.2); BASOPHILS % (AUTO) 0.4 % (0-2); EOSINOPHILS % (AUTO) 0.8 % (0-6); HEMOGLOBIN 12.3 g/dL (12.0-15.5); HGB HCT DIFFERENCE -0.1; LYMPHOCYTES % (AUTO) 9.4 % (13-45); MEAN CORPUSCULAR HEMOGLOBIN 32.6 pg (27.0-33.4); MEAN CORPUSCULAR HGB CONC 33.3 g/dL (32.0-36.0); MEAN CORPUSCULAR VOLUME 98 fl (80-97); MONOCYTES % (AUTO) 8.5 % (3-13); RED BLOOD COUNT 3.77 10^6/uL (3.72-5.28); RED CELL DISTRIBUTION WIDTH 15.5 % (11.5-14.0); SEGMENTED NEUTROPHILS % (AUTO) 80.9 % (42-78); WHITE BLOOD COUNT 13.3 10^3/uL (4.0-10.5)
[2017-02-26 04:42] LABS: ANION GAP 9 (5-19); BLOOD UREA NITROGEN 21 mg/dL (7-20); CARBON DIOXIDE 27 mmol/L (22-30); CHLORIDE 105 mmol/L (98-107); CREATININE RESULT 0.79 mg/dL (0.52-1.25); GLUCOSE 96 mg/dL (75-110); POTASSIUM 4.8 mmol/L (3.6-5.0); SODIUM 140.7 mmol/L (137-145)
[2017-02-26] MEDS: PROPRANOLOL HCL 10 MG TABLET PO SCH ×3 (06:58→23:57)
[2017-02-26] MEDS: ENOXAPARIN SODIUM INJ 40 MG/0.4 ML DISP.SYRIN SUBCUT SCH (07:45)
[2017-02-26] MEDS: GABAPENTIN 300 MG CAPSULE PO SCH ×3 (11:47→17:20)
[2017-02-26] MEDS: DOCUSATE SODIUM 100 MG CAPSULE PO SCH (11:48)
[2017-02-26] MEDS: SENNOSIDES/DOCUSATE 8.6-50 MG 1 EACH TABLET PO SCH (11:48)
[2017-02-26] MEDS: ASPIRIN 325 MG TABLET PO SCH (11:48)
[2017-02-26] MEDS: POLYETHYLENE GLYCOL 3350 POWDER 17 GM/1 PACKET PO SCH (11:49)
[2017-02-26] MEDS: LANSOPRAZOLE 15 MG TAB.RAP.DR PO SCH (11:49)
[2017-02-26] MEDS: ONDANSETRON HCL 8 MG TABLET PO PRN (11:50)
[2017-02-26] MEDS ORDERED: IMIPENEM/CILASTATIN SODIUM INJ 500 MG VIAL IV SCH (15:15)
[2017-02-26] MEDS ORDERED: OXYCODONE HCL IR 5 MG TABLET PO PRN (15:17)
--- NOTE | 2017-02-26 15:21 | PDOC PROGRESS REPORT ---
Subjective Progress Note for:: 02/26/17 Subjective:: Patient reportedly more oriented and awake. Able to engage in conversation better. Daughter is at bedside. No reported temperature spikes, nausea or vomiting, diarrhea, chills or fever. Patient had an indwelling chest tube on the left. Physical Exam Vital Signs: Temp Pulse Resp BP Pulse Ox 98.5 F 73 18 139/42 H 97 02/26/17 11:45 02/26/17 11:45 02/26/17 11:45 02/26/17 11:45 02/26/17 11:45 Intake & Output 02/25/17 02/26/17 02/27/17 06:59 06:59 06:59 Intake Total 1271 1800 Output Total 525 105 Balance 1271 1275 -105 Weight 85.2 kg 90.5 kg General appearance: PRESENT: no acute distress, obese Head exam: PRESENT: normocephalic Eye exam: PRESENT: EOMI Mouth exam: PRESENT: moist, neck supple Neck exam: ABSENT: JVD Respiratory exam: PRESENT: decreased breath sounds - Left lower lung field. ABSENT: rhonchi, wheezes Cardiovascular exam: PRESENT: RRR. ABSENT: gallop GI/Abdominal exam: PRESENT: soft. ABSENT: distended, tenderness Extremities exam: PRESENT: pedal edema - Trace lower extremity edema Neurological exam: PRESENT: alert, awake Skin exam: PRESENT: dry, warm. ABSENT: cyanosis Results Laboratory Results: 02/26/17 04:02 02/26/17 04:02 02/25/17 02/26/17 02/26/17 15:00 00:35 04:02 WBC 13.3 H RBC 3.77 Hgb 12.3 Hct 37.0 MCV 98 H MCH 32.6 MCHC 33.3 RDW 15.5 H Plt Count 193 Seg Neutrophils % 80.9 H Lymphocytes % 9.4 L Monocytes % 8.5 Eosinophils % 0.8 Basophils % 0.4 Absolute Neutrophils 10.8 H Absolute Lymphocytes 1.2 Absolute Monocytes 1.1 Absolute Eosinophils 0.1 Absolute Basophils 0.1 Carbonic Acid 1.07 HCO3/H2CO3 Ratio 25:1 ABG pH 7.50 H ABG pCO2 35.7 ABG pO2 55.4 L ABG HCO3 26.9 H ABG O2 Saturation 91.4 L ABG Base Excess 3.8 FiO2 2 L Sodium Potassium Chloride Carbon Dioxide Anion Gap BUN Creatinine Est GFR ( Amer) Est GFR (Non-Af Amer) Glucose Calcium Fluid Type PLEURAL Fluid Source LUNG Fluid Color RED Fluid Appearance OPAQUE Fluid Viscosity LIQUID Fluid WBC 900 Fluid RBC 74668 02/26/17 04:02 WBC RBC Hgb Hct MCV MCH MCHC RDW Plt Count Seg Neutrophils % Lymphocytes % Monocytes % Eosinophils % Basophils % Absolute Neutrophils Absolute Lymphocytes Absolute Monocytes Absolute Eosinophils Absolute Basophils Carbonic Acid HCO3/H2CO3 Ratio ABG pH ABG pCO2 ABG pO2 ABG HCO3 ABG O2 Saturation ABG Base Excess FiO2 Sodium 140.7 Potassium 4.8 Chloride 105 Carbon Dioxide 27 Anion Gap 9 BUN 21 H Creatinine 0.79 Est GFR ( Amer) > 60 Est GFR (Non-Af Amer) > 60 Glucose 96 Calcium 8.0 L Fluid Type Fluid Source Fluid Color Fluid Appearance Fluid Viscosity Fluid WBC Fluid RBC 02/26/17 00:41 NT-Pro-B Natriuret Pep 1780 H Impressions: Chest CT 02/23/17 00:33 IMPRESSION: 1. LARGE LEFT PLEURAL EFFUSION WITH COMPRESSIVE ATELECTASIS OF THE LEFT LUNG. MINIMAL SUBPULMONIC RIGHT PLEURAL EFFUSION. PATCHY DENSITY IN THE RIGHT LUNG BASE MAY BE DUE TO ATELECTASIS VERSUS DEVELOPING PNEUMONIA. 2. HETEROGENOUS APPEARANCE OF THE THYROID WITH LOWER LEFT LOBE NODULE WITH NUMEROUS CALCIFICATIONS. RECOMMEND FOLLOW-UP WITH ULTRASOUND OF THE THYROID. 3. SOMEWHAT NODULAR APPEARANCE OF THE LIVER WELL SPLENOMEGALY. PROBABLE CIRRHOSIS OR OTHER CHRONIC LIVER DISEASE. Thoracentesis 02/25/17 00:00 IMPRESSION: SUCCESSFUL CT GUIDED left chest tube placement. Serosanguineous fluid obtained, sent for testing as per hospitalist physician. Chest X-Ray 02/26/17 07:00 IMPRESSION: Left pleural effusion with probable left lower lobe atelectasis. There is no significant improvement. Assessment & Plan - Time Time Spent with patient: 25-34 minutes - Plan Summary Plan Summary: We are going to decrease the trazodone. We are going to decrease the oxycodone IR. WBC persistently mildly elevated, we will change antibiotic to Primaxin. Follow cultures. Continue supportive care. Patient's confusion may all be related to metabolic effects of acute illness and chronic illness, in combination with medication.
[2017-02-26] MEDS ORDERED: FUROSEMIDE INJ/PF 40 MG/4 ML SDV IV ONE (16:00)
[2017-02-26] MEDS ORDERED: METOLAZONE 2.5 MG TABLET PO ONE (16:30)
[2017-02-26] MEDS: IMIPENEM/CILASTATIN SODIUM 500 MG in NORMAL SALINE 100 ML IV SCH (17:17)
[2017-02-26] MEDS: INSULIN LISPRO 100 UNIT/ML 3 ML VIAL SUBCUT PRN (19:27)
[2017-02-26] MEDS: TRAZODONE HCL 50 MG TABLET PO SCH (23:56)
[2017-02-26] MEDS: LACTULOSE SYRUP 20 GM/30 ML UDCUP PO SCH (23:59)
[2017-02-27] MEDS: IPRATROPIUM/ALBUTEROL 0.5-2.5 MG/3 ML AMPUL NEB SCH ×4 (00:36→23:27)
[2017-02-27] MEDS: IMIPENEM/CILASTATIN SODIUM 500 MG in NORMAL SALINE 100 ML IV SCH ×3 (02:34→17:38)
[2017-02-27] MEDS: PROPRANOLOL HCL 10 MG TABLET PO SCH ×3 (05:11→21:48)
[2017-02-27] MEDS: ENOXAPARIN SODIUM INJ 40 MG/0.4 ML DISP.SYRIN SUBCUT SCH (07:30)
[2017-02-27] MEDS: ONDANSETRON HCL 8 MG TABLET PO PRN (10:08)
[2017-02-27] MEDS: ASPIRIN 325 MG TABLET PO SCH (11:16)
[2017-02-27] MEDS: SENNOSIDES/DOCUSATE 8.6-50 MG 1 EACH TABLET PO SCH (11:16)
[2017-02-27] MEDS: OXYCODONE HCL SR 10 MG TABLET PO SCH ×2 (11:17→21:48)
[2017-02-27] MEDS: LANSOPRAZOLE 15 MG TAB.RAP.DR PO SCH (11:17)
[2017-02-27] MEDS: DOCUSATE SODIUM 100 MG CAPSULE PO SCH (11:18)
[2017-02-27] MEDS: FUROSEMIDE INJ/PF 40 MG/4 ML SDV IV SCH (11:18)
[2017-02-27] MEDS: GABAPENTIN 300 MG CAPSULE PO SCH ×3 (11:18→17:37)
[2017-02-27] MEDS: POLYETHYLENE GLYCOL 3350 POWDER 17 GM/1 PACKET PO SCH (11:19)
[2017-02-27] MEDS: METOLAZONE 2.5 MG TABLET PO SCH (11:20)
--- NOTE | 2017-02-27 14:57 | PDOC PROGRESS REPORT ---
Subjective Progress Note for:: 02/27/17 Subjective:: The patient reports she is feeling better. Chest x-ray however still showing large pleural effusion. Cultures remain negative so far. No respiratory distress, nausea or vomiting, diarrhea, chills or fever reported. Physical Exam Vital Signs: Temp Pulse Resp BP Pulse Ox 98.1 F 71 19 126/55 H 92 02/27/17 12:00 02/27/17 12:00 02/27/17 12:00 02/27/17 12:00 02/27/17 12:00 Intake & Output 02/26/17 02/27/17 02/28/17 06:59 06:59 06:59 Intake Total 1800 5308 Output Total 525 715 Balance 1275 4593 Weight 90.5 kg 92.7 kg General appearance: PRESENT: no acute distress, cooperative Head exam: PRESENT: normocephalic Eye exam: PRESENT: EOMI Mouth exam: PRESENT: moist, neck supple Neck exam: ABSENT: JVD Respiratory exam: PRESENT: decreased breath sounds - Left lung field Cardiovascular exam: PRESENT: RRR. ABSENT: gallop GI/Abdominal exam: PRESENT: hypoactive bowel sounds, soft. ABSENT: distended, tenderness Extremities exam: PRESENT: pedal edema Neurological exam: PRESENT: alert, awake Skin exam: PRESENT: dry, warm. ABSENT: cyanosis Results Laboratory Results: 02/26/17 04:02 02/26/17 04:02 02/25/17 02/25/17 02/25/17 15:00 15:00 15:00 Fluid Glucose 119 Fluid Total Protein 2.9 Fluid LDH 193 02/26/17 00:41 NT-Pro-B Natriuret Pep 1780 H Impressions: Chest CT 02/23/17 00:33 IMPRESSION: 1. LARGE LEFT PLEURAL EFFUSION WITH COMPRESSIVE ATELECTASIS OF THE LEFT LUNG. MINIMAL SUBPULMONIC RIGHT PLEURAL EFFUSION. PATCHY DENSITY IN THE RIGHT LUNG BASE MAY BE DUE TO ATELECTASIS VERSUS DEVELOPING PNEUMONIA. 2. HETEROGENOUS APPEARANCE OF THE THYROID WITH LOWER LEFT LOBE NODULE WITH NUMEROUS CALCIFICATIONS. RECOMMEND FOLLOW-UP WITH ULTRASOUND OF THE THYROID. 3. SOMEWHAT NODULAR APPEARANCE OF THE LIVER WELL SPLENOMEGALY. PROBABLE CIRRHOSIS OR OTHER CHRONIC LIVER DISEASE. Thoracentesis 02/25/17 00:00 IMPRESSION: SUCCESSFUL CT GUIDED left chest tube placement. Serosanguineous fluid obtained, sent for testing as per hospitalist physician. Chest X-Ray 02/27/17 00:00 IMPRESSION: STABLE LEFT PLEURAL DRAINAGE CATHETER. NO CHANGE IN THE LARGE LEFT PLEURAL EFFUSION. Assessment & Plan - Diagnosis (1) Pleural effusion Is this a current diagnosis for this admission?: Yes (2) Pneumonia Qualifiers: Pneumonia type: due to unspecified organism Laterality: right Lung location: lower lobe of lung Qualified Code(s): J18.1 - Lobar pneumonia, unspecified organism Is this a current diagnosis for this admission?: Yes (3) Coagulopathy Is this a current diagnosis for this admission?: Yes (4) Hepatic cirrhosis Qualifiers: Hepatic cirrhosis type: unspecified hepatic cirrhosis Ascites presence : without ascites Qualified Code(s): K74.60 - Unspecified cirrhosis of liver Is this a current diagnosis for this admission?: Yes (5) Thyroid nodule Is this a current diagnosis for this admission?: Yes (6) COPD (chronic obstructive pulmonary disease) Qualifiers: COPD type: unspecified COPD Qualified Code(s): J44.9 - Chronic obstructive pulmonary disease, unspecified Is this a current diagnosis for this admission?: Yes (7) Hypothyroidism (acquired) Is this a current diagnosis for this admission?: Yes (8) Portal hypertension Is this a current diagnosis for this admission?: Yes (9) Essential hypertension Is this a current diagnosis for this admission?: Yes (10) Hyperlipidemia Qualifiers: Hyperlipidemia type: unspecified Qualified Code(s): E78.5 - Hyperlipidemia, unspecified Is this a current diagnosis for this admission?: Yes (11) Anxiety and depression Is this a current diagnosis for this admission?: Yes - Time Time Spent with patient: 25-34 minutes - Plan Summary Plan Summary: We will continue diuretics for now. Continue antibiotics. Monitor electrolytes. We will consult surgery for further evaluation and management of the chest tube and pleural effusion. Case discussed with on-call surgical history who will evaluate the patient..
[2017-02-27] MEDS: NORMAL SALINE 1000 ML 1,000 ML IV PRN (16:35)
[2017-02-27] MEDS: INSULIN LISPRO 100 UNIT/ML 3 ML VIAL SUBCUT PRN (17:45)
[2017-02-27] MEDS ORDERED: BISACODYL 10 MG SUPP.RECT PR ONE (18:30)
[2017-02-27] MEDS ORDERED: DEXTROSE 50%-WATER 25 GM/50 ML DISP.SYRIN IV PRN ×2 (19:56)
[2017-02-27] MEDS ORDERED: GLUCAGON,HUMAN RECOMB 1 MG INJ SUBCUT PRN (19:56)
[2017-02-27] MEDS ORDERED: DEXTROSE 40% GEL 15 GM TUBE PO PRN ×2 (19:56)
[2017-02-27] MEDS ORDERED: PHYTONADIONE 5 MG TABLET PO ONE (21:00)
[2017-02-27] MEDS: TRAZODONE HCL 50 MG TABLET PO SCH (21:47)
[2017-02-27] MEDS: LACTULOSE SYRUP 20 GM/30 ML UDCUP PO SCH (21:50)
--- NOTE | 2017-02-27 23:53 | CONSULTATION REPORT E ---
Consultation Report NAME: ARETHA COLLADO : 1945 AGE: 71Y DATE: 02/27/2017 407 A TO: LOLITA BLANK M.D. FROM: MADDISON NAPIER M.D. Requesting Physician REFERRING PROVIDER: Dr. Grace. REASON FOR REFERRAL: Left pleural effusion. HISTORY OF PRESENT ILLNESS: The patient is a 71-year-old female who lives at a correction. She was found unresponsive and then transferred to the emergency room at [facility] several days ago. She was found to have a left pleural effusion. Radiology had placed a chest tube with some drainage but followup x-ray shows continued large left pleural effusion. Patient is confused and is not able to give a complete history. History is gained from the chart. PAST MEDICAL HISTORY: 1. Hyperlipidemia. 2. Hypertension. 3. Liver cirrhosis with portal hypertension. 4. Asthma. 5. Chronic obstructive pulmonary disease. 6. History of pneumonia. 7. Migraines. 8. Hypothyroidism. 9. Gastroesophageal reflux disease. 10. Arthritis. 11. Depression. PAST SURGICAL HISTORY: 1. Cholecystectomy. 2. Hysterectomy. 3. Orthopedic surgeries. SOCIAL HISTORY: Patient lives in a correction. FAMILY HISTORY: Unable to be obtained. MEDICATIONS: 1. Aspirin. 2. Neurontin. 3. Lactulose. 4. Omeprazole. 5. Zofran. 6. Mirapex. 7. Albuterol. 8. Desyrel. 9. Xanax. 10. Lovenox. 11. Oxycodone. 12. Inderal. 13. Sulfa. 14. Trimethoprim or Bactrim. ALLERGIES: 1. Codeine. 2. Demerol. 3. Flagyl. 4. Penicillin. 5. Propofol. 6. Potassium. REVIEW OF SYSTEMS: Unable to obtain a review of systems from the patient as she is confused. PHYSICAL EXAM: VITAL SIGNS: Temperature 97.6, pulse 71, blood pressure 127/66. GENERAL: The patient is lying in bed. She is confused. EYES: Not icteric. NECK: No lymphadenopathy. HEART: Regular. LUNGS: Diminished especially on the left side. ABDOMEN: Soft, nontender. EXTREMITIES: Edema. NEUROLOGICAL: Patient is confused. DIAGNOSTIC DATA: A chest x-ray reveals a large left pleural effusion. White blood cell count of 13.3. PT is 18. INR 1.46. ASSESSMENT: 1. Large left pleural effusion, not adequately drained with the current small chest tube placed by radiology. Therefore, she would need a chest tube placement. Because of her confusion, coagulopathy, and poor overall health, I recommend it be done down in the operating room with sedation from Anesthesia. 2. History of liver cirrhosis with coagulopathy. I recommend the patient be given vitamin K and receive 2 units of FFP prior to chest tube insertion. DICTATING PHYSICIAN: LOLITA BLANK M.D. [id number] PHY#: [id number] ID: [id number] JOB#: [id number] ACCT: [id number] cc:LOLITA BLANK M.D. > MTDD
[2017-02-28] MEDS: IMIPENEM/CILASTATIN SODIUM 500 MG in NORMAL SALINE 100 ML IV SCH (03:22)
[2017-02-28] MEDS: PROPRANOLOL HCL 10 MG TABLET PO SCH (06:49)
[2017-02-28] MEDS: IPRATROPIUM/ALBUTEROL 0.5-2.5 MG/3 ML AMPUL NEB SCH ×3 (07:52→23:23)
[2017-02-28] MEDS ORDERED: MORPHINE SULFATE 10 MG/ML INJ IV PRN (11:21)
[2017-02-28] MEDS ORDERED: LORAZEPAM INJ 2 MG/1 ML VIAL IV PRN (11:21)
--- NOTE | 2017-02-28 11:29 | PDOC PROGRESS REPORT ---
Subjective Progress Note for:: 02/28/17 Subjective:: Patient is less responsive today. Given FFP for possible chest tube replacement under general anesthesia. Concerned about patient reversal of DO NOT RESUSCITATE during the procedure and the possibility of the patient not to be able to be weaned. Family decided to place the patient on comfort measures only after long discussion. No reported respiratory distress, diarrhea, temperature spikes, nausea or vomiting. Physical Exam Vital Signs: Temp Pulse Resp BP Pulse Ox 98.7 F 68 18 139/92 H 96 02/28/17 10:00 02/28/17 10:00 02/28/17 10:00 02/28/17 10:00 02/28/17 10:00 Intake & Output 02/27/17 02/28/17 03/01/17 06:59 06:59 06:59 Intake Total 5308 3312 237 Output Total 715 5 Balance 4593 3307 237 Weight 92.7 kg 93.6 kg General appearance: PRESENT: obese, other - Patient is less responsive today Head exam: PRESENT: normocephalic Eye exam: PRESENT: conjunctiva pale Mouth exam: PRESENT: moist Neck exam: ABSENT: JVD Respiratory exam: PRESENT: decreased breath sounds - Left side. ABSENT: rhonchi , wheezes Cardiovascular exam: PRESENT: irregular rhythm. ABSENT: gallop GI/Abdominal exam: PRESENT: soft. ABSENT: distended, tenderness Extremities exam: PRESENT: other - Positive edema Neurological exam: PRESENT: awake - But nonverbal Skin exam: PRESENT: dry, warm. ABSENT: cyanosis Results Laboratory Results: 02/26/17 04:02 02/26/17 04:02 02/25/17 02/25/17 02/25/17 15:00 15:00 15:00 Fluid Glucose 119 Fluid Total Protein 2.9 Fluid LDH 193 Blood Type Antibody Screen 02/28/17 01:20 Fluid Glucose Fluid Total Protein Fluid LDH Blood Type O POSITIVE Antibody Screen NEGATIVE 02/25/17 15:00 Pleural Fluid - Left Pleural Effusion Gram Stain - Final 02/25/17 15:00 Pleural Fluid - Left Pleural Effusion AFB Smear Concentration - Final 02/25/17 15:00 Pleural Fluid - Left Pleural Effusion Acid Fast Bacilli Smear - Final 02/26/17 00:41 NT-Pro-B Natriuret Pep 1780 H Impressions: Chest CT 02/23/17 00:33 IMPRESSION: 1. LARGE LEFT PLEURAL EFFUSION WITH COMPRESSIVE ATELECTASIS OF THE LEFT LUNG. MINIMAL SUBPULMONIC RIGHT PLEURAL EFFUSION. PATCHY DENSITY IN THE RIGHT LUNG BASE MAY BE DUE TO ATELECTASIS VERSUS DEVELOPING PNEUMONIA. 2. HETEROGENOUS APPEARANCE OF THE THYROID WITH LOWER LEFT LOBE NODULE WITH NUMEROUS CALCIFICATIONS. RECOMMEND FOLLOW-UP WITH ULTRASOUND OF THE THYROID. 3. SOMEWHAT NODULAR APPEARANCE OF THE LIVER WELL SPLENOMEGALY. PROBABLE CIRRHOSIS OR OTHER CHRONIC LIVER DISEASE. Thoracentesis 02/25/17 00:00 IMPRESSION: SUCCESSFUL CT GUIDED left chest tube placement. Serosanguineous fluid obtained, sent for testing as per hospitalist physician. Chest X-Ray 02/27/17 00:00 IMPRESSION: STABLE LEFT PLEURAL DRAINAGE CATHETER. NO CHANGE IN THE LARGE LEFT PLEURAL EFFUSION. Assessment & Plan - Diagnosis (1) Pleural effusion Is this a current diagnosis for this admission?: Yes (2) Pneumonia Qualifiers: Pneumonia type: due to unspecified organism Laterality: right Lung location: lower lobe of lung Qualified Code(s): J18.1 - Lobar pneumonia, unspecified organism Is this a current diagnosis for this admission?: Yes (3) Coagulopathy Is this a current diagnosis for this admission?: Yes (4) Hepatic cirrhosis Qualifiers: Hepatic cirrhosis type: unspecified hepatic cirrhosis Ascites presence : without ascites Qualified Code(s): K74.60 - Unspecified cirrhosis of liver Is this a current diagnosis for this admission?: Yes (5) Thyroid nodule Is this a current diagnosis for this admission?: Yes (6) COPD (chronic obstructive pulmonary disease) Qualifiers: COPD type: unspecified COPD Qualified Code(s): J44.9 - Chronic obstructive pulmonary disease, unspecified Is this a current diagnosis for this admission?: Yes (7) Hypothyroidism (acquired) Is this a current diagnosis for this admission?: Yes (8) Portal hypertension Is this a current diagnosis for this admission?: Yes (9) Essential hypertension Is this a current diagnosis for this admission?: Yes (10) Hyperlipidemia Qualifiers: Hyperlipidemia type: unspecified Qualified Code(s): E78.5 - Hyperlipidemia, unspecified Is this a current diagnosis for this admission?: Yes (11) Anxiety and depression Is this a current diagnosis for this admission?: Yes - Time Time Spent with patient: 25-34 minutes - Plan Summary Plan Summary: We will put the patient on comfort measures. Family and POA aware and agreeable that all aggressive measures will be withdrawn, including home medications, antibiotics and chest tube being removed. We will give morphine as needed IV and Ativan as needed IV. We will consult hospice.
[2017-02-28] MEDS: SENNOSIDES/DOCUSATE 8.6-50 MG 1 EACH TABLET PO SCH (11:45)
[2017-02-28] MEDS: FUROSEMIDE INJ/PF 40 MG/4 ML SDV IV SCH (11:47)
[2017-02-28] MEDS: METOLAZONE 2.5 MG TABLET PO SCH (12:39)
[2017-02-28] MEDS: OXYCODONE HCL SR 10 MG TABLET PO SCH ×2 (12:40→21:26)
--- NOTE | 2017-02-28 12:43 | PROGRESS NOTE E ---
Progress Note NAME: ARETHA COLLADO : 1945 AGE: 71Y DATE: 02/28/2017 ROOM: 407 SUBJECTIVE: This is a patient with Parkinson disease. She is demented. She also has cirrhosis of the liver. She has a large pleural effusion on her left chest. This has been attempted to be decompressed with Interventional Radiology. This was unsuccessful and it was suggested that we place a chest tube. Dr. Cantrell had felt due to her dementia she was noncooperative and requested that we do this in the operating room with general anesthesia. I discussed this with Dr. Jones who felt there was a significant risk that the patient would require persistent intubation. I obtained informed consent from the patient's daughter, and in discussing with her it was becoming clearer that the family wanted to discuss cessation of care to comfort measures. I discussed this with her in detail and she discussed this with her brother and they came to the family decision along with the mother to request COMFORT MEASURES ONLY. Therefore, the plan for surgical intervention with a chest tube was abandoned. I discussed this with the hospitalist as well. Surgery at this point will sign off. DICTATING PHYSICIAN: HIEU DUARTE M.D. [id number] PHY#: [id number] ID: [id number] JOB#: [id number] ACCT: [id number] cc: >
[2017-03-01] MEDS: IPRATROPIUM/ALBUTEROL 0.5-2.5 MG/3 ML AMPUL NEB SCH ×2 (07:45→16:00)
[2017-03-01 08:38] VITALS: BP 126/44
[2017-03-01] MEDS: SENNOSIDES/DOCUSATE 8.6-50 MG 1 EACH TABLET PO SCH (10:47)
[2017-03-01] MEDS: OXYCODONE HCL SR 10 MG TABLET PO SCH (10:47)
--- NOTE | 2017-03-01 12:21 | PDOC PROGRESS REPORT ---
Subjective Progress Note for:: 03/01/17 Subjective:: Patient is sedated. Physical Exam Vital Signs: Temp Pulse Resp BP Pulse Ox 97.6 F 63 16 126/44 H 92 03/01/17 07:44 03/01/17 07:45 03/01/17 07:45 03/01/17 07:44 03/01/17 07:45 Intake & Output 02/28/17 03/01/17 03/02/17 06:59 06:59 06:59 Intake Total 3312 1191 Output Total 5 0 Balance 3307 1191 Weight 93.6 kg 93.3 kg General appearance: PRESENT: no acute distress Eye exam: PRESENT: conjunctiva pink. ABSENT: scleral icterus Mouth exam: PRESENT: moist, tongue midline Neck exam: ABSENT: JVD Respiratory exam: PRESENT: decreased breath sounds - Decreased breath sounds in the left base.. ABSENT: rales, rhonchi, wheezes Cardiovascular exam: PRESENT: RRR. ABSENT: diastolic murmur, rubs, systolic murmur GI/Abdominal exam: PRESENT: normal bowel sounds, soft. ABSENT: distended, guarding, mass, organolmegaly, rebound, tenderness Extremities exam: ABSENT: calf tenderness, clubbing, pedal edema Neurological exam: PRESENT: other - Sedated Psychiatric exam: PRESENT: other - Unable to assess Skin exam: PRESENT: dry, intact, warm. ABSENT: cyanosis, rash Results Laboratory Results: 02/26/17 04:02 02/26/17 04:02 02/25/17 15:00 Pleural Fluid - Left Pleural Effusion Gram Stain - Final 02/26/17 00:41 NT-Pro-B Natriuret Pep 1780 H Impressions: Chest CT 02/23/17 00:33 IMPRESSION: 1. LARGE LEFT PLEURAL EFFUSION WITH COMPRESSIVE ATELECTASIS OF THE LEFT LUNG. MINIMAL SUBPULMONIC RIGHT PLEURAL EFFUSION. PATCHY DENSITY IN THE RIGHT LUNG BASE MAY BE DUE TO ATELECTASIS VERSUS DEVELOPING PNEUMONIA. 2. HETEROGENOUS APPEARANCE OF THE THYROID WITH LOWER LEFT LOBE NODULE WITH NUMEROUS CALCIFICATIONS. RECOMMEND FOLLOW-UP WITH ULTRASOUND OF THE THYROID. 3. SOMEWHAT NODULAR APPEARANCE OF THE LIVER WELL SPLENOMEGALY. PROBABLE CIRRHOSIS OR OTHER CHRONIC LIVER DISEASE. Thoracentesis 02/25/17 00:00 IMPRESSION: SUCCESSFUL CT GUIDED left chest tube placement. Serosanguineous fluid obtained, sent for testing as per hospitalist physician. Chest X-Ray 02/27/17 00:00 IMPRESSION: STABLE LEFT PLEURAL DRAINAGE CATHETER. NO CHANGE IN THE LARGE LEFT PLEURAL EFFUSION. Assessment & Plan - Diagnosis (1) Acute encephalopathy Is this a current diagnosis for this admission?: YesPlan: This is secondary to her infection and underlying liver disease. Patient is currently comfort care with hospice. (2) Pneumonia Qualifiers: Pneumonia type: due to unspecified organism Laterality: right Lung location: lower lobe of lung Qualified Code(s): J18.1 - Lobar pneumonia, unspecified organism Is this a current diagnosis for this admission?: YesPlan: Patient is comfort care with hospice. (3) Hepatic cirrhosis Qualifiers: Hepatic cirrhosis type: unspecified hepatic cirrhosis Ascites presence : without ascites Qualified Code(s): K74.60 - Unspecified cirrhosis of liver Is this a current diagnosis for this admission?: YesPlan: Continue comfort care - Time Time Spent with patient: 15-24 minutes - Inpatient Certification Medical Necessity: Need Close Monitoring Due to Risk of Patient Decompensation - Plan Summary Plan Summary: Awaiting on inpatient hospice
--- NOTE | 2017-03-01 13:58 | PDOC TRANSFER SUMMARY ---
General - Admit/Disc Date/PCP Admission Date/Primary Care Provider: 02/23/17 02:24 Discharge Date: 03/01/17 - Discharge Diagnosis (1) Acute encephalopathy Is this a current diagnosis for this admission?: Yes (2) Pneumonia Is this a current diagnosis for this admission?: Yes (3) Hepatic cirrhosis Is this a current diagnosis for this admission?: Yes - Additional Information Resuscitation Status: Do Not Resuscitate Discharge Diet: As Tolerated Discharge Activity: Activity As Tolerated Home Medications: Morphine Sulfate [Roxanol] 10 mg PO Q2HP PRN #120 ml 03/01/17 Oxycodone HCl [Oxycontin Sr 10 mg Tablet] 20 mg PO Q12 #60 tab.sr.12h 03/01/17 History of Present Illness Admission Date/PCP: 02/23/17 02:24 History of Present Illness: ARETHA COLLADO is a 71 year old female with an extensive past medical history of alcohol related hepatic cirrhosis, portal hypertension, hypothyroidism, depression and anxiety, gastritis, chronic pain, chronic constipation, history of CVA who is a bedbound long-term half-way resident. She's found by half-way staff to be unresponsive to voice brought into the emergency room where she is awake and alert and delirious refusing treatment. Without focal complaints her workup reveals +2 edema, a large left-sided pleural effusion with atelectasis versus pneumonia, leukocytosis, and hyponatremia. She started on empiric resistance to this treatment results in her right forearm IV infiltrates resulting in Levaquin to the subcutaneous tissue. Patient is referred to the hospitalist for admission. She is lying flat in no acute distress but delirious, abusive toward staff and refusing treatment her baseline is unclear and is oriented 1. Hospital Course Hospital Course: 71 year old female who presented with encephalopathy secondary to pneumonia. The patient was treated with IV antibiotics. She had a large pleural effusion on the left. Patient underwent thoracentesis by radiology but continued have problems with fluid collection. There was consideration given to having this but in by surgery however the family elected for comfort care. Patient also had problems encephalopathy secondary to her underlying cirrhosis. The patient is being discharged to [facility] with hospice. Physical Exam Vital Signs: Temp Pulse Resp BP Pulse Ox 97.6 F 63 16 126/44 H 92 03/01/17 07:44 03/01/17 07:45 03/01/17 07:45 03/01/17 07:44 03/01/17 07:45 Intake & Output 02/28/17 03/01/17 03/02/17 06:59 06:59 06:59 Intake Total 3312 1191 Output Total 5 0 Balance 3307 1191 Weight 93.6 kg 93.3 kg Results Laboratory Results: 02/26/17 04:02 02/26/17 04:02 02/25/17 15:00 Pleural Fluid - Left Pleural Effusion Gram Stain - Final 02/25/17 15:00 Pleural Fluid - Left Pleural Effusion Body Fluid Culture - Final Staphylococcus Aureus No Anaerobic Organisms 02/26/17 00:41 NT-Pro-B Natriuret Pep 1780 H Impressions: Chest CT 02/23/17 00:33 IMPRESSION: 1. LARGE LEFT PLEURAL EFFUSION WITH COMPRESSIVE ATELECTASIS OF THE LEFT LUNG. MINIMAL SUBPULMONIC RIGHT PLEURAL EFFUSION. PATCHY DENSITY IN THE RIGHT LUNG BASE MAY BE DUE TO ATELECTASIS VERSUS DEVELOPING PNEUMONIA. 2. HETEROGENOUS APPEARANCE OF THE THYROID WITH LOWER LEFT LOBE NODULE WITH NUMEROUS CALCIFICATIONS. RECOMMEND FOLLOW-UP WITH ULTRASOUND OF THE THYROID. 3. SOMEWHAT NODULAR APPEARANCE OF THE LIVER WELL SPLENOMEGALY. PROBABLE CIRRHOSIS OR OTHER CHRONIC LIVER DISEASE. Thoracentesis 02/25/17 00:00 IMPRESSION: SUCCESSFUL CT GUIDED left chest tube placement. Serosanguineous fluid obtained, sent for testing as per hospitalist physician. Chest X-Ray 02/27/17 00:00 IMPRESSION: STABLE LEFT PLEURAL DRAINAGE CATHETER. NO CHANGE IN THE LARGE LEFT PLEURAL EFFUSION. Qualifiers PATEINT BEING DISCHARGED WITH ANY OF THE FOLLOWING DIAGNOSIS?: No Plan Discharge Plan: [facility]. Time Spent: Greater than 30 Minutes
== END 2017-03-01 18:45 | DRG 193 ==
LOC: ER 22:02 → UNDOADMIN 02-23 02:23 → EH 02-23 02:23 → 4N 02-23 04:20 → EH 02-23 04:20
PROVIDERS: ADMIT Internal Medicine; ATTEND Internal Medicine
PROC: 0W9B30Z Drainage of Left Pleural Cavity with Drainage Device, Percutaneous Approach (ICD-10-PCS; principal; 2017-02-25)
PROC: 0W9B3ZZ Drainage of Left Pleural Cavity, Percutaneous Approach (ICD-10-PCS; 2017-02-25)
DX: J18.9 Pneumonia, unspecified organism (principal); G93.40 Encephalopathy, unspecified; E87.1 Hypo-osmolality and hyponatremia; E46 Unspecified protein-calorie malnutrition; K76.6 Portal hypertension; G43.909 Migraine, unspecified, not intractable, without status migrainosus; M19.90 Unspecified osteoarthritis, unspecified site; K74.60 Unspecified cirrhosis of liver; K59.09 Other constipation; E03.9 Hypothyroidism, unspecified; F32.9 Major depressive disorder, single episode, unspecified; F41.9 Anxiety disorder, unspecified; G89.29 Other chronic pain; G20 Parkinson's disease; F02.80 Dementia in other diseases classified elsewhere, unspecified severity, without behavioral disturbance, psychotic disturbance, mood disturbance, and anxiety; Z51.5 Encounter for palliative care; Z79.82 Long term (current) use of aspirin; Z79.899 Other long term (current) drug therapy; Z90.49 Acquired absence of other specified parts of digestive tract; Z86.73 Personal history of transient ischemic attack (TIA), and cerebral infarction without residual deficits; Z74.01 Bed confinement status; Z66 Do not resuscitate; Z90.710 Acquired absence of both cervix and uterus; Z88.0 Allergy status to penicillin; Z88.8 Allergy status to other drugs, medicaments and biological substances
CPT/HCPCS: 32551; 36415; 36430; 36600; 51701; 71010; 71260; 80048; 80053; 81001; 82140; 82803; 82945; 82962; 83615; 83880; 84134; 84157; 84443; 85025; 85610; 85730; 86850; 86900; 86901; 87015; 87040; 87070; 87075; 87077; 87086; 87101; 87116; 87186; 87205; 87206; 89050; 93005; 93010; 94640; 94660; 96374; 99291; C1769; C1894; J0743; J1630; J1650; J1815; J1940; J1956; J2060; J3010; J3490; J7030; J7620; P9017; S0119

== ENCOUNTER 2017-03-04 02:05 | Emergency (ER) | payer MEDICARE, MEDICAID ==
--- NOTE | 2017-03-04 02:19 | ER Document Report ---
ED General - General Stated Complaint: FALL Notes: Patient is a 71 year old female who presents with complaint of being found next to her bed appropriate group home. They found her on the floor. Patient is on hospice. All her medications have been discontinued. Report from the paramedics is that at baseline patient is sometimes nonverbal and sometimes talkative. Currently she is not saying much. Report from the group home is that they found her with bruising along her right and left back flank. snf told the hospital that denies first time that they have noticed the bruising. TRAVEL OUTSIDE OF THE [place] IN LAST 30 DAYS: No - Related Data Allergies/Adverse Reactions: codeine [Codeine] Allergy (Unknown, Verified 09/16/14 08:06) Unknown reaction meperidine HCl [From Demerol] Allergy (Unknown, Verified 09/16/14 08:06) Unknown reaction metronidazole [From Flagyl] Allergy (Unknown, Verified 09/16/14 08:06) Blisters Penicillins Allergy (Unknown, Verified 09/16/14 08:06) Blisters propofol [From Diprivan] Allergy (Unknown, Verified 09/16/14 08:06) Unknown reaction potassium [From Potassimin] Allergy (Verified 09/16/14 08:06) Blisters Past Medical History - Social History Smoking Status: Never Smoker Frequency of alcohol use: None Drug Abuse: None Family History: Reviewed & Not Pertinent - Past Medical History Cardiac Medical History: Reports: Hx Hypercholesterolemia, Hx Hypertension - portal, Hx Heart Murmur Pulmonary Medical History: Reports: Hx Asthma, Hx COPD, Hx Pneumonia Denies: Hx Tuberculosis Neurological Medical History: Reports: Hx Cerebrovascular Accident, Hx Migraine. Denies: Hx Seizures Endocrine Medical History: Reports: Hx Hypothyroidism GI Medical History: Reports: Hx Gastroesophageal Reflux Disease Musculoskeltal Medical History: Reports Hx Arthritis Psychiatric Medical History: Denies: Hx Depression Past Surgical History: Reports: Hx Cholecystectomy, Hx Hysterectomy, Hx Neurologic Surgery - back, Hx Orthopedic Surgery - back, knee, Hx Tonsillectomy - Immunizations Hx Diphtheria, Pertussis, Tetanus Vaccination: Yes Hx Pneumococcal Vaccination: 10/28/10 Review of Systems - Review of Systems -: Yes ROS unobtainable due to patient's medical condition - Patient is currently nonverbal. Physical Exam - Notes Notes: General Appearance: Well nourished, alert, cooperative, no acute distress, no obvious discomfort. Vitals: reviewed, See vital signs table. Head: no swelling or tenderness to the head Eyes: PERRL, EOMI, Conjuctiva clear Mouth: No decreasd moisture Neck: Supple, no neck tenderness Lungs: No wheezing, No rales, No rhonci, No accessory muscle use, good air exchange bilaterally. Heart: Normal rate, Regular rythm, No murmur, no rub Chest wall. No pain to palpation on anterior chest wall. Back: Patient has bruising on both the right and left side of the back. This is along the lateral aspect of the back along the rib cage. This bruising is darker in color and appears to be at least one to 2 days old. Abdomen: Normal BS, soft, No rigidity, No abdominal tenderness, No guarding, no rebound, no abdominal masses, no organomegaly Extremities: strength 5/5 in all extremities, good pulses in all extremities, no swelling or tenderness in the extremities, no edema. Skin: warm, dry, appropriate color, no rash Neuro: Awake and alert but does communicate. Course - Transfer of Care Notes: 03/04/17 03:32 I did obtain x-rays of the patient's ribs due to the bruising along the flanks. There is no evidence of any rib fractures. The chest x-ray itself did show large left-sided pleural effusion which is unchanged comparison to her previous chest x-ray. She does have some poor vascular congestion which again is unchanged. Patient is on hospice and all medications were discontinued. I do not see adding any further treatment being that it is obviously the wishes of the patient or her family to not be on medications and to be on hospice at this time. I did not obtain a CT scan of the head or neck as the patient does not have any significant signs of trauma to the head and neck and also the treatment for a cervical spine fracture and/or intracranial hemorrhage would be invasive which would go against the patient's current wishes being that she is on hospice care. Patient will be discharged back to group home. Dictation of this chart was performed using voice recognition software; therefore, there may be some unintended grammatical errors. Discharge - Discharge Clinical Impression: Pleural effusion Fall Qualifiers: Encounter type: initial encounter Qualified Code(s): W19.XXXA - Unspecified fall, initial encounter Condition: Stable Disposition: HOME, SELF-CARE Additional Instructions: Please continue hospice care at the group home. Return to ER if the family has any further concerns that cannot be immediately addressed by the patient's physician or hospice team.
[2017-03-04 04:41] VITALS: BP 119/54
== END 2017-03-04 04:39 | disposition home or self-care (01) ==
LOC: ER 02:05
DX: S20.221A Contusion of right back wall of thorax, initial encounter (principal); S20.222A Contusion of left back wall of thorax, initial encounter; W19.XXXA Unspecified fall, initial encounter; Y92.122 Bedroom in nursing home as the place of occurrence of the external cause; J44.9 Chronic obstructive pulmonary disease, unspecified; J90 Pleural effusion, not elsewhere classified; Z88.5 Allergy status to narcotic agent; Z88.1 Allergy status to other antibiotic agents; Z88.0 Allergy status to penicillin; Z88.8 Allergy status to other drugs, medicaments and biological substances
CPT/HCPCS: 71111; 99285